=== PATIENT | female | born 2000 | race Asian ===

== ENCOUNTER 2024-12-12 07:46 | Emergency (ER) | payer SELFPAY ==
[~2024-12-12] VITALS: Ht 160 cm; Wt 99.8 kg
[2024-12-12 07:56] VITALS: O2SAT 98
[2024-12-12 07:57] VITALS: TEMP 37.2; O2SAT 99
[2024-12-12 08:51] LABS: CHLORIDE 104 mEq/L (98-107); POTASSIUM 3.7 mEq/L (3.5-5.1); SODIUM 138 mEq/L (136-145)
[2024-12-12 08:52] LABS: CARBON DIOXIDE 23 mEq/L (21-32)
[2024-12-12 08:53] LABS: CALCIUM 9.5 mg/dL (8.7-10.4)
[2024-12-12 08:57] LABS: CREATININE 0.7 mg/dL (0.6-1.0); GLUCOSE 136 mg/dL (70-105)
[2024-12-12 08:58] LABS: BASOPHILS % 0.7 % (0.0-2.0); HEMATOCRIT. 35.6 % (36.0-48.0); HEMOGLOBIN. 10.7 g/dL (12.0-16.0); LYMPHOCYTES % 25.9 % (20.0-50.0); MEAN CORPUSCULAR HEMOGLOBIN 19.5 pg (28.0-32.0); MEAN CORPUSCULAR HGB CONC 30.1 g/dL (31.0-37.0); MEAN CORPUSCULAR VOLUME 64.8 fL (81.0-99.0); MEAN PLATELET VOLUME 8.3 fl (7.4-10.4); MONOCYTES % 6.8 % (2.0-8.0); NEUTROPHILS % 63.6 % (40.0-76.0); PLATELET 264 x1000/uL (130-400); RED BLOOD CELL COUNT 5.49 mill/uL (4.2-5.4); RED CELL DISTRIBUTION WIDTH 16.4 % (11.6-14.6); UREA NITROGEN BLOOD 12 mg/dL (9-23); WHITE BLOOD COUNT 11.5 x1000/uL (4.5-11.0)
[2024-12-12 09:03] LABS: ADD RBC MORPHOLOGY YES; DIFFERENTIAL COMMENT 1
[2024-12-12 09:06] LABS: TROPONIN I HIGH SENSITIVITY < 4 ng/L (3.0-34)
[2024-12-12 09:31] VITALS: BP 136/85; PULSE 90; RESP 16
[2024-12-12] MEDS: KETOROLAC 30MG/ML VIAL IV STA (09:31)
[2024-12-12] MEDS: ACETAMINOPHEN 325MG TABLET PO STA (09:32)
[2024-12-12] MEDS: SODIUM CHLORIDE 0.9% 1,000 ML IV ONE (09:33)
[2024-12-12] MEDS: METOCLOPRAMIDE HCL 10MG/2ML VIAL IV ONE (09:33)
[2024-12-12] MEDS: MECLIZINE 25MG TABLET PO ONE (09:33)
[2024-12-12 10:34] LABS: ANISOCYTOSIS 2+; MICROCYTOSIS 2+; PLATELET ESTIMATE NORMAL
== END 2024-12-12 11:47 | disposition home or self-care (01) ==
LOC: ER 07:46
DX: R42 Dizziness and giddiness (principal); E11.9 Type 2 diabetes mellitus without complications
CPT/HCPCS: 99284; 96374; 96361; 96375; 80048; 85025; 84484; 36415; 93005; J1885; J8597; J2765; J7030